=== PATIENT | male | born 1955 | race Caucasian/White ===

== ENCOUNTER → 2016-09-08 | Day surgery (SDC) | payer OTHER ==
[~2016-09-08] MED LIST: ALPR0.5T99 PO; CELE200 PO; CHLO50TA6 PO; DARV PO; LACTATED RINGER'S 1000 ML INJ 1,000 ML ONE; NAPR250T57 PO; PROPOFOL 500 MG/50 ML BTL IV ONE; SIMV20 PO; TAMS0.4C67 PO
--- NOTE | 2016-09-08 14:10 | GIPROC ---
[facility] [address] [facility], [address] COLONOSCOPY PROCEDURE REPORT EXAM DATE: 09/08/2016 PATIENT NAME: Avelino Manzanares MR #: [id number] BIRTHDATE: 1955 ENDOSCOPIST: Opal Lynch MD ORDER #: [id number] DISTRIBUTOR OPERATOR: Precious Sanchez RN STATUS: outpatient INDICATIONS: The patient is a 61 yr old male here for a colonoscopy due to high risk patient with personal history of colonic polyps PROCEDURE PERFORMED: Colonoscopy with ablation MEDICATIONS: None and Per Anesthesia. PREP QUALITY: suboptimal ESTIMATED BLOOD LOSS: None CONSENT: The patient understands the risks and benefits of the procedure and understands that these risks include, but are not limited to: sedation, allergic reaction, infection, perforation and/or bleeding. Alternative means of evaluation and treatment include, among others: physical exam, x-rays, and/or surgical intervention. The patient elects to proceed with this endoscopic procedure. medical equipment was checked for proper function. Hand hygiene and appropriate measures for infection prevention was taken. After the risks, benefits and alternatives of the procedure were thoroughly explained, Informed consent was verified, confirmed and timeout was successfully executed by the treatment team. A digital exam revealed no abnormalities of the rectum The EC-3490Li ([id number]) and EC-3890Li ([id number]) endoscope was introduced through the anus and advanced to the cecum, which was identified by both the appendix and ileocecal valve. The instrument was then slowly withdrawn as the colon was fully examined. COLON FINDINGS: Stool in the cecum and ascending colon. There was no evidence of small polyp in the sigmoid ablated with heat. Diverticulum was found in the descending colon. Retroflexed views revealed no abnormalities The scope was then completely withdrawn from the patient and the procedure terminated. ADVERSE EVENTS: There were no complications. IMPRESSIONS: 1. Stool in the cecum and ascending colon 2. There was no evidence of small polyp in the sigmoid ablated with heat 3. Diverticulum in the descending colon 4. Retroflexed views revealed no abnormalities 5. Revealed no abnormalities of the rectum RECOMMENDATIONS: 1. Yearly hemoccult 2. High fiber diet 3. Longer prep RECALL: Return 3 months Colonoscopy 2 days prep Opal Lynch MD eSigned: Opal Lynch MD 09/08/2016 2:10 PM cc: Aleisha Beyer M.D. DOCUMENT ADDENDUM eSigned: Opal Lynch MD 09/08/2016 2:58 PM Reason for addendum: [x] Correction of inaccurate information [ ] Recently acquired lab/pathology results [ ] Additional information Comments: there was small polyp in the sigmoid ablated with heat PATIENT NAME: Glenna Avelino A MR#: [id number]
--- NOTE | 2016-09-08 14:13 | GIPROC ---
[facility] [address] [facility], [address] EGD PROCEDURE REPORT EXAM DATE: 09/08/2016 PATIENT NAME: Avelino Manzanares MR #: [id number] BIRTHDATE: 1955 ATTENDING: Opal Lynch MD ORDER #: [id number] MINING CAPTAIN: Precious Sanchez RN STATUS: outpatient INDICATIONS: The patient is a 61 yr old male here for an EGD due to heartburn PROCEDURE PERFORMED: EGD w/ biopsy MEDICATIONS: None and Per Anesthesia. TOPICAL ANESTHETIC: CONSENT: The patient understands the risks and benefits of the procedure and understands that these risks include, but are not limited to: sedation, allergic reaction, infection, perforation and/or bleeding. Alternative means of evaluation and treatment include, among others: physical exam, x-rays, and/or surgical intervention. The patient elects to proceed with this endoscopic procedure. medical equipment was checked for proper function. Hand hygiene and appropriate measures for infection prevention was taken. After the risks, benefits and alternatives of the procedure were thoroughly explained, Informed consent was verified, confirmed and timeout was successfully executed by the treatment team. The patient was anesthetized with topical anesthesia and the EC-3490Li ([id number]) endoscope was introduced through the mouth and advanced to the second portion of the duodenum. Retroflexed views revealed no abnormalities The gastroscope was then slowly withdrawn and removed. Irregular Z line Bx done at EG junction. Duodenitis Bx from antrum to R/O H pylori. ADVERSE EVENTS: There were no complications. IMPRESSIONS: 1. Irregular Z line Bx done at EG junction 2. Retroflexed views revealed no abnormalities RECOMMENDATIONS: 1. Await biopsy results. Biopsy results will not be ready for 7-10 days. If you don't hear from us in two weeks, call our office for biopsy results. 2. Anti-reflux regimen 3. Start PPI 4. Avoid NSAIDS PATIENT CONDITION: stable DISPOSITION: Home REPEAT EXAM: Return 3 years EGD Opal Lynch MD eSigned: Opal Lynch MD 09/08/2016 2:13 PM cc: Benji YoussefD.
== END | disposition home or self-care (01) ==
LOC: ESDC 11:46
PROVIDERS: ATTEND Hospitalist
DX: R12 Heartburn (principal); K22.9 Disease of esophagus, unspecified; K29.80 Duodenitis without bleeding; Z86.010 Personal history of colon polyps; D12.5 Benign neoplasm of sigmoid colon
CPT/HCPCS: 00740; 00810; 43239; 45388; 88305; J3010; J7120; 88312